=== PATIENT | female | born 1985 | race Caucasian/White ===

== ENCOUNTER 2017-10-19 10:43 | Outpatient (CLI) | END 2017-10-19 13:55 | disposition home or self-care (01) ==

== ENCOUNTER 2017-10-27 13:57 | Outpatient (CLI) | END 2017-10-27 17:17 | disposition home or self-care (01) ==

== ENCOUNTER 2017-10-29 08:18 | Outpatient (CLI) | END 2017-10-29 10:10 | disposition home or self-care (01) ==

== ENCOUNTER 2017-11-12 16:00 | Inpatient (IN) | END 2017-11-16 18:30 | disposition home or self-care (01) | DRG 765 ==